=== PATIENT | male | born 2000 | race Two or more races ===

== ENCOUNTER 2020-06-30 23:16 | Emergency (ER) | payer OTHER ==
[~2020-06-30] VITALS: Ht 177.8 cm; Wt 63.5 kg
[2020-06-30 23:39] VITALS: BP 114/70
== END 2020-07-01 01:24 | disposition left against medical advice (07) ==
LOC: EDBD 23:16 → ER 23:16
DX: S02.2XXA Fracture of nasal bones, initial encounter for closed fracture (principal); S00.81XA Abrasion of other part of head, initial encounter; V49.9XXA Car occupant (driver) (passenger) injured in unspecified traffic accident, initial encounter; Y93.89 Activity, other specified; Y92.89 Other specified places as the place of occurrence of the external cause; Y99.8 Other external cause status
CPT/HCPCS: 70450; 70486; 71250; 72125; 73590; 74176